=== PATIENT | male | born 1965 | race Caucasian/White ===

== ENCOUNTER 2017-04-27 07:23 | Emergency (ER) | payer BC ==
[2017-04-27 07:36] VITALS: BP 103/68
--- NOTE | 2017-04-27 08:41 | RAD ---
HISTORY: Left elbow swelling COMPARISONS: None VIEWS: 5, Frontal, lateral, and oblique views of the left elbow FINDINGS: BONE DENSITY: Normal. BONES: There is no displaced fracture. There is an enthesophyte of the olecranon JOINTS: There is no arthropathy. There is no posterior supracondylar fat pad to suggest a joint effusion. ALIGNMENT: There is no dislocation. SOFT TISSUES: There is soft tissue swelling over the olecranon OTHER FINDINGS: None. IMPRESSION: SOFT TISSUE SWELLING SUGGESTIVE OF OLECRANON BURSITIS. NO ACUTE OSSEOUS INJURY. IF SYMPTOMS PERSIST, RECOMMEND REPEAT IMAGING.
--- NOTE | 2017-04-27 10:19 | UC ---
Ton Garcia Angela, scribed for Ziyad Gallardo MD on 04/27/17 at 0752 . Upper Extremity HPI - HPI Summary HPI Summary: This pt is a 51 y/o right-handed presenting to [facility] c/o swollen left elbow x10 days. Pt reports he was in [facility] and was treated with Naproxen for 7 days with no relief. He notes that ever since he finished Naproxen, he's elbow feels warmer and sensitive. Pt denies any injury to the area, fever, weight loss, night sweats, rashes, tick bites, red streaks, back pain. No PMHx of gout, HTN, DM. Pt would like his elbow to be drained. - History of Current Complaint Chief Complaint: UCUpperExtremity Stated Complaint: SWOLLEN ELBOW Time Seen by Provider: 04/27/17 07:40 Hx Obtained From: Patient Onset/Duration: Lasting Days Pain Intensity: 2 Pain Scale Used: 0-10 Numeric Location Of Pain: Is Discrete @ - left elbow Aggravating Factor(s): Nothing Alleviating Factor(s): Nothing Associated Signs And Symptoms: Positive: Swelling. Negative: Bruising, Fever, Weakness, Numbness/Tingling - Allergies/Home Medications Allergies/Adverse Reactions: Allergies Allergy/AdvReac Type Severity Reaction Status Date / Time No Known Allergies Allergy Verified 04/27/17 07:36 Home Medications: Home Medications NK [No Home Medications Reported] 04/27/17 [History Confirmed 04/27/17] PMH/Surg Hx/FS Hx/Imm Hx Previously Healthy: Yes - Surgical History Surgical History: Yes Surgery Procedure, Year, and Place: hernia - Social History Alcohol Use: Occasionally Substance Use Type: None Smoking Status (MU): Never Smoked Tobacco Review of Systems Constitutional: Negative Skin: Negative Eyes: Negative ENT: Negative Respiratory: Negative Cardiovascular: Negative Gastrointestinal: Negative Genitourinary: Negative Motor: Negative Neurovascular: Negative Musculoskeletal: Other: - Left elbow mild pain and swelling. Neurological: Negative Psychological: Negative All Other Systems Reviewed And Are Negative: Yes Physical Exam Triage Information Reviewed: Yes Vital Signs: Initial Vital Signs Temp 97.6 F 04/27/17 07:32 Pulse 66 04/27/17 07:32 Resp 16 04/27/17 07:32 BP 103/68 04/27/17 07:32 Pulse Ox 100 04/27/17 07:32 Vital Signs Reviewed: Yes - Additional Comments The patient is well-nourished in no acute distress and in no acute pain. The skin is warm and dry and skin color reflects adequate perfusion. HEENT: The head is normocephalic and atraumatic. The pupils are equal and reactive. The conjunctivae are clear and without drainage. Nares are patent and without drainage. Neck is supple with full range of motion and non-tender. Respiratory: Chest is non-tender. Lungs are clear to auscultation and breath sounds are symmetrical and equal. Cardiovascular: Hear is regular rate and rhythm. There is no murmur or rub auscultated. There is no peripheral edema and pulses are symmetrical and equal. Abdomen: The abdomen is soft and non-tender. There are normal bowel sounds heard in all four quadrants and there is no organomegaly palpated. Musculoskeletal: There is no back pain noted. Extremities are non-tender with full range of motion. There is good capillary refill. There is no peripheral edema or calf tenderness elicited. There is fluid on the olecranon with full range of motion. There is no pain with flexion, extension, and circumduction rotation. It is not red or warm. Neurological: Patient is alert and oriented to person, place and time. The patient has symmetrical motor strength in all four extremities. The patient is neurovascularly intact. Psychiatric: The patient has an appropriate affect and does not exhibit any anxiety or depression. Diagnostics - Radiology XR of left elbow Xray Interpretation: Positive (See Comments) - IMPRESSION: Soft tissue swelling suggestive of olecranon bursitis. No acute osseous injury. If symptoms persist, recommen repeat imaging. Radiology Interpretation Completed By: Radiologist Upper Extremity Course/Dx - Course Course Of Treatment: I updated the pt and reviewed his XR results. Pt would still like a drainage. I will speak with Dr. Grayson. 9:05 AM - Dr. Grayson agreed to see pt today if appointments are availble, otherwise she will see him tomorrow. - Differential Dx/Diagnosis Differential Diagnosis/HQI/PQRI: Bursitis, Septic Arthritis, Other - gout, arthritis, fracture Provider Diagnoses: Olecranon bursitis Discharge - Discharge Plan Condition: Stable Disposition: HOME Patient Education Materials: Elbow Bursitis (ED) Referrals: Danny Grayson MD [Medical Doctor] - Additional Instructions: Please follow up with Dr. Grayson to be further evaluated. The documentation as recorded by the Ton nicholson Angela accurately reflects the service I personally performed and the decisions made by me, Ziyad Gallardo MD.
== END 2017-04-27 09:14 | disposition home or self-care (01) ==
LOC: UCEAST 07:23
DX: M70.22 Olecranon bursitis, left elbow (principal); Y93.9 Activity, unspecified
CPT/HCPCS: 99201; G0463